=== PATIENT | female | born 1965 | race Two or more races ===

== ENCOUNTER 2016-12-01 23:42 | Emergency (ER) | payer OTHER ==
[~2016-12-01] VITALS: Ht 167.6 cm; Wt 81.6 kg
[~2016-12-01 23:42] MED LIST: ALPR0.25 PO; AML5T PO; ATE50T PO; GLIP2.5T3 PO; SAXA1TAB PO
[2016-12-01 23:52] VITALS: BP 170/90
[2016-12-02 00:35] LABS: Basophils # (auto) 0 uL; Basophils % (auto) 0.5 % (0.0-2.0); Eosinophils # (auto) 0.1 uL; Hematocrit 40.8 % (36.0-46.0); Hemoglobin 13.2 g/dL (12.2-16.2); Lymphocytes # (auto) 2.4 uL; Lymphocytes % (auto) 34.1 % (10.0-50.0); Mean Corpuscular Hemoglobin 29.3 pg (28.0-32.0); Mean Corpuscular Hgb Conc. 32.4 g/dL (32.0-36.0); Mean Corpuscular Volume 90.5 fL (80.0-100.0); Mean Platelet Volume 8.6 fL (7.4-10.4); Monocytes # (auto) 0.4 uL; Monocytes % (auto) 6.1 % (0.0-12.0); Neutrophils # (auto) 4.2 uL; Neutrophils % (auto) 58.3 % (37.0-80.0); Platelet Count (auto) 282 10^3/uL (140-450); Red Cell Distribution Width 12.6 % (11.6-16.0); White Blood Cell 7.2 10^3/uL (4.4-10.8)
[2016-12-02 00:52] LABS: INR 0.93 (0.9-1.15); Partial Thromboplastin Time 27.5 sec (22.64-33.71); Prothrombin Time 10.1 sec (9.37-12.3)
[2016-12-02 00:53] LABS: Albumin 3.4 g/dL (3.4-5.0); Anion Gap 9 (5-15); BUN/Creatinine Ratio 13.4; Blood Urea Nitrogen 11 mg/dL (7-18); Carbon Dioxide 26 mmol/L (21-32); Chloride 106 mmol/L (98-107); GFR African American 94 mL/min; GFR Non-African American 78 mL/min; Glucose 184 mg/dL (74-106); Magnesium 2.2 mg/dL (1.6-2.6); Potassium 3.3 mmol/L (3.5-5.1); Sodium 141 mmol/L (136-145)
[2016-12-02 00:58] LABS: Alkaline Phosphatase 98 U/L (45-117); Aspartate Aminotransferase 13 U/L (15-37); Bilirubin, Total 0.5 mg/dL (0.2-1.0); Total Protein 7.3 g/dL (6.4-8.2)
[2016-12-02 01:02] LABS: B-Type Natriuretic Peptide 27.3 pg/mL (0-100)
== END 2016-12-02 03:08 | disposition left against medical advice (07) ==
LOC: EDBD 23:42 → ER 23:42
DX: R07.9 Chest pain, unspecified (principal); F41.9 Anxiety disorder, unspecified; Z53.21 Procedure and treatment not carried out due to patient leaving prior to being seen by health care provider
CPT/HCPCS: 36415; 71020; 80053; 83735; 83880; 84484; 85025; 85610; 85730; 93005

== ENCOUNTER 2017-08-23 07:18 | Emergency (ER) | payer OTHER ==
[~2017-08-23] VITALS: Ht 30.5 cm; Wt 73.5 kg
[2017-08-23 07:55] LABS: Basophils # (auto) 0 uL; Basophils % (auto) 0.5 % (0.0-2.0); Eosinophils # (auto) 0.1 uL; Eosinophils % (auto) 1.3 % (0.0-7.0); Hematocrit 39.5 % (36.0-46.0); Hemoglobin 13.6 g/dL (12.2-16.2); Lymphocytes # (auto) 2.8 uL; Lymphocytes % (auto) 39.7 % (10.0-50.0); Mean Corpuscular Hgb Conc. 34.4 g/dL (32.0-36.0); Mean Corpuscular Volume 87.2 fL (80.0-100.0); Monocytes # (auto) 0.5 uL; Monocytes % (auto) 6.7 % (0.0-12.0); Neutrophils # (auto) 3.6 uL; Neutrophils % (auto) 51.8 % (37.0-80.0); Nucleated Red Blood Cells % 0.2 %; Platelet Count (auto) 294 10^3/uL (140-450); Red Blood Cells 4.53 10^6/uL (4.0-5.20); Red Cell Distribution Width 13.7 % (11.8-14.3)
[2017-08-23 08:22] LABS: Alanine Aminotransferase 28 U/L (13-56); Albumin 3.8 g/dL (3.4-5.0); Alkaline Phosphatase 125 U/L (45-117); Anion Gap 10 (5-15); Aspartate Aminotransferase 13 U/L (15-37); BUN/Creatinine Ratio 21.5; Bilirubin, Total 0.2 mg/dL (0.2-1.0); Blood Urea Nitrogen 14 mg/dL (7-18); Calcium 8.9 mg/dL (8.5-10.1); Carbon Dioxide 26 mmol/L (21-32); Chloride 97 mmol/L (98-107); GFR African American 122 mL/min; GFR Non-African American 101 mL/min; Glucose 227 mg/dL (74-106); Sodium 133 mmol/L (136-145)
[2017-08-23 08:31] LABS: Potassium 2.6 mmol/L (3.5-5.1)
[2017-08-23] MEDS ORDERED: cloNIDine HCL 0.1 MG TAB PO ONE (09:00)
[2017-08-23] MEDS ORDERED: POTASSIUM CHL 20 Meq TABLET PO ONE (09:15)
[2017-08-23] MEDS ORDERED: KETOROLAC TROMETH 30 MG/ML 1ML VIAL IV ONE (09:30)
[2017-08-23] MEDS ORDERED: ONDANSETRON HCL 4 MG/2 ML VIAL IV ONE (09:30)
[2017-08-23] MEDS ORDERED: ONDANSETRON ODT 4 MG TAB PO ONE ×2 (09:32→09:45)
[2017-08-23 09:52] LABS: Urine Bacteria FEW /hpf (None Seen); Urine Blood Negative /uL (Negative); Urine WBC 12 /hpf (0 - 5)
[2017-08-23 12:17] VITALS: BP 107/64
== END 2017-08-23 12:19 | disposition home or self-care (01) ==
LOC: ER 07:18
DX: I10 Essential (primary) hypertension (principal); E11.65 Type 2 diabetes mellitus with hyperglycemia; K21.9 Gastro-esophageal reflux disease without esophagitis; R51 Headache; E78.5 Hyperlipidemia, unspecified; Z90.49 Acquired absence of other specified parts of digestive tract; Z88.6 Allergy status to analgesic agent
CPT/HCPCS: 36415; 70450; 80053; 81001; 82962; 83735; 84132; 84484; 85025; 93005; 96374; 99285; J1885; Q0162

== ENCOUNTER 2017-08-27 05:38 | Emergency (ER) | payer OTHER ==
[~2017-08-27] VITALS: Ht 157.5 cm; Wt 72.6 kg
[2017-08-27 07:44] LABS: Basophils # (auto) 0 uL; Basophils % (auto) 0.4 % (0.0-2.0); Eosinophils # (auto) 0.1 uL; Eosinophils % (auto) 0.8 % (0.0-7.0); Hematocrit 38.9 % (36.0-46.0); Hemoglobin 13.4 g/dL (12.2-16.2); Lymphocytes # (auto) 1.4 uL; Lymphocytes % (auto) 21.4 % (10.0-50.0); Mean Corpuscular Hemoglobin 30.5 pg (28.0-32.0); Mean Corpuscular Hgb Conc. 34.4 g/dL (32.0-36.0); Mean Corpuscular Volume 88.6 fL (80.0-100.0); Monocytes # (auto) 0.3 uL; Monocytes % (auto) 5.4 % (0.0-12.0); Neutrophils # (auto) 4.6 uL; Nucleated Red Blood Cells % 0.1 %; Platelet Count (auto) 272 10^3/uL (140-450); Red Blood Cells 4.39 10^6/uL (4.0-5.20); Red Cell Distribution Width 13.4 % (11.8-14.3); White Blood Cell 6.4 10^3/uL (4.4-10.8)
[2017-08-27 07:56] LABS: INR 0.88 (0.9-1.15); Partial Thromboplastin Time 26.6 sec (22.64-33.71); Prothrombin Time 9.6 sec (9.37-12.3)
[2017-08-27 07:56] LABS: Urine Bacteria NONE SEEN /hpf (None Seen); Urine Blood Negative /uL (Negative); Urine Specific Gravity 1.019 (1.001-1.035); Urine WBC 9 /hpf (0 - 5)
[2017-08-27 08:12] LABS: Alanine Aminotransferase 27 U/L (13-56); Albumin 3.8 g/dL (3.4-5.0); Alkaline Phosphatase 113 U/L (45-117); Anion Gap 10 (5-15); Aspartate Aminotransferase 14 U/L (15-37); BUN/Creatinine Ratio 18.2; Bilirubin, Total 0.3 mg/dL (0.2-1.0); Blood Urea Nitrogen 12 mg/dL (7-18); Calcium 9.3 mg/dL (8.5-10.1); Carbon Dioxide 24 mmol/L (21-32); Chloride 103 mmol/L (98-107); GFR African American 120 mL/min; GFR Non-African American 99 mL/min; Glucose 211 mg/dL (74-106); Magnesium 2.3 mg/dL (1.6-2.6); Potassium 3.5 mmol/L (3.5-5.1); Sodium 137 mmol/L (136-145); Total Protein 7.9 g/dL (6.4-8.2)
[2017-08-27] MEDS ORDERED: cefTRIAXone W LIDOCAINE 1 GM IM IM ONE (09:45)
[2017-08-27] MEDS ORDERED: cefTRIAXone SOD 1,000 MG VL IM ONE (10:00)
[2017-08-27 10:07] VITALS: BP 149/87
== END 2017-08-27 10:08 | disposition home or self-care (01) ==
LOC: EDBD 05:38 → ER 05:46
DX: N39.0 Urinary tract infection, site not specified (principal); R07.9 Chest pain, unspecified; E11.9 Type 2 diabetes mellitus without complications; K21.9 Gastro-esophageal reflux disease without esophagitis; E78.5 Hyperlipidemia, unspecified; I10 Essential (primary) hypertension; R06.02 Shortness of breath; Z90.49 Acquired absence of other specified parts of digestive tract; Z88.9 Allergy status to unspecified drugs, medicaments and biological substances
CPT/HCPCS: 36415; 71045; 80053; 81001; 83735; 83880; 84484; 85025; 85610; 85730; 93005; 96372; 99285; J0696

== ENCOUNTER 2022-09-25 23:02 | Inpatient (IN) | payer BC, OTHER ==
[~2022-09-25] VITALS: Ht 165.1 cm; Wt 73.5 kg
[2022-09-25] MEDS ORDERED: ACCU-CHEK COMFORT CURVE STRIP VI ONE (23:30)
[2022-09-26 00:09] LABS: Basophils # (auto) 0 10 ^3/uL (0-0.2); Basophils % (auto) 0.3 % (0.0-2.0); Eosinophils # (auto) 0.1 10 ^3/uL (0-0.8); Eosinophils % (auto) 0.3 % (0.0-7.0); Hematocrit 38.1 % (36.0-46.0); Hemoglobin 13.1 g/dL (12.2-16.2); Lymphocytes # (auto) 1.4 10 ^3/uL (0.4-5.4); Lymphocytes % (auto) 8.4 % (10.0-50.0); Mean Corpuscular Hgb Conc. 34.4 g/dL (32.0-36.0); Mean Corpuscular Volume 87.2 fL (80.0-100.0); Monocytes % (auto) 5.8 % (0.0-12.0); Neutrophils # (auto) 14.6 10 ^3/uL (1.6-8.6); Neutrophils % (auto) 85.2 % (37.0-80.0); Red Blood Cells 4.37 10^6/uL (4.0-5.20); Red Cell Distribution Width 13.2 % (11.8-14.3); White Blood Cell 17.2 10^3/uL (4.4-10.8)
[2022-09-26 00:24] LABS: Albumin 3.9 g/dL (3.4-5.0); BUN/Creatinine Ratio 27.3 (10.0-20.0); Calcium 9.1 mg/dL (8.5-10.1); Magnesium 1.6 mg/dL (1.6-2.6); Potassium 3.2 mmol/L (3.5-5.1)
[2022-09-26 00:26] LABS: INR 0.93 (0.9-1.15); Partial Thromboplastin Time 28.9 sec (24.6-33.4)
[2022-09-26 00:27] LABS: Bilirubin, Total 0.5 mg/dL (0.2-1.0)
[2022-09-26] MEDS ORDERED: LACTATED RINGER'S 2,050 ML IV ONE (01:45)
[2022-09-26] MEDS ORDERED: ONDANSETRON HCL 4 MG/2 ML VIAL IV ONE (01:45)
[2022-09-26] MEDS ORDERED: PIPERACILLIN-TAZOB 3.375GM 100 ML IV ONE (01:45)
[2022-09-26] MEDS ORDERED: VANCOMYCIN 1GM/250ML 250 ML IV ONE (01:45)
[2022-09-26] MEDS ORDERED: MORPHINE SULFATE 4 MG/ML SYR/VIAL IV ONE (01:45)
[2022-09-26 03:18] LABS: Lactic Acid w/Reflex 2.7 mmol/L (0.4-2.0)
[2022-09-26] MEDS ORDERED: ASPirin 81 mg TAB PO ONE (03:45)
[2022-09-26] MEDS ORDERED: ENOXAPARIN SOD 80 MG/0.8ML SYRINGE SC ONE (03:45)
[2022-09-26 04:01] LABS: Urine Bacteria NONE SEEN /hpf (None Seen); Urine Blood Negative /uL (Negative); Urine Specific Gravity 1.006 (1.001-1.035); Urine WBC 13 /hpf (0 - 5)
[2022-09-26] MEDS: SODIUM CHLORIDE 0.9% 1,000 ML IV SCH ×2 (07:45→17:45)
[2022-09-26] MEDS ORDERED: DOCUSATE SOD 100 MG CAP PO PRN (07:45)
[2022-09-26] MEDS ORDERED: VANCOMYCIN PER PHARMACY 0 MG IV SCH (07:45)
[2022-09-26] MEDS ORDERED: DEXTROSE (50%) 50ML SYRG IV PRN (07:45)
[2022-09-26] MEDS ORDERED: ONDANSETRON HCL 4 MG/2 ML VIAL IV PRN (07:45)
[2022-09-26] MEDS ORDERED: NITROGLYCERIN 0.4 MG SL TAB SL PRN (07:45)
[2022-09-26] MEDS ORDERED: POTASSIUM CHL 20 Meq TABLET PO ONE (07:45)
[2022-09-26] MEDS ORDERED: MORPHINE SULFATE INJ 2 MG/ml SYRG IV PRN (07:45)
[2022-09-26] MEDS: ASPirin 81 mg TAB PO SCH (10:21)
[2022-09-26] MEDS: METOPROLOL SUCCINATE XL 50 MG TAB PO SCH (10:22)
[2022-09-26] MEDS: ATORVASTATIN 20 MG TAB PO SCH (10:22)
[2022-09-26] MEDS: ENOXAPARIN SOD 40 MG/0.4 ML SYRINGE SC SCH (10:23)
[2022-09-26] MEDS: ACCU-CHEK COMFORT CURVE STRIP VI SCH ×3 (11:30→22:17)
[2022-09-26] MEDS: InsuLIN REG 1unit/0.01ml Soln (100units/ml) SC SCH ×3 (12:21→22:48)
[2022-09-26] MEDS: GABAPENTIN 300 MG CAP PO SCH ×2 (13:50→22:47)
[2022-09-26] MEDS: PIPERACILLIN-TAZOB 3.375GM 100 ML IV SCH ×2 (13:51→22:47)
[2022-09-26] MEDS: VANCOMYCIN 1GM/250ML 250 ML IV SCH (18:28)
[2022-09-26] MEDS ORDERED: LORazepam 2MG/ML-1ML VIAL IV PRN (21:30)
[2022-09-27 06:24] LABS: Basophils # (auto) 0 10 ^3/uL (0-0.2); Basophils % (auto) 0.5 % (0.0-2.0); Eosinophils # (auto) 0.1 10 ^3/uL (0-0.8); Eosinophils % (auto) 0.7 % (0.0-7.0); Hematocrit 33.7 % (36.0-46.0); Hemoglobin 11.8 g/dL (12.2-16.2); Lymphocytes # (auto) 2.2 10 ^3/uL (0.4-5.4); Lymphocytes % (auto) 20.2 % (10.0-50.0); Mean Corpuscular Hemoglobin 30.5 pg (28.0-32.0); Mean Corpuscular Hgb Conc. 35.1 g/dL (32.0-36.0); Mean Corpuscular Volume 86.7 fL (80.0-100.0); Monocytes # (auto) 0.7 10 ^3/uL (0-1.3); Monocytes % (auto) 6.8 % (0.0-12.0); Neutrophils # (auto) 7.8 10 ^3/uL (1.6-8.6); Neutrophils % (auto) 71.8 % (37.0-80.0); Nucleated Red Blood Cells % 0.1 %; Red Blood Cells 3.88 10^6/uL (4.0-5.20); Red Cell Distribution Width 12.8 % (11.8-14.3); White Blood Cell 10.8 10^3/uL (4.4-10.8)
[2022-09-27] MEDS: GABAPENTIN 300 MG CAP PO SCH ×3 (06:29→22:48)
[2022-09-27] MEDS: PIPERACILLIN-TAZOB 3.375GM 100 ML IV SCH ×3 (06:29→22:48)
[2022-09-27 06:48] LABS: Calcium 8.5 mg/dL (8.5-10.1); Potassium 3.2 mmol/L (3.5-5.1)
[2022-09-27 06:50] LABS: BUN/Creatinine Ratio 12.1 (10.0-20.0)
[2022-09-27] MEDS: ACCU-CHEK COMFORT CURVE STRIP VI SCH ×4 (07:03→22:49)
[2022-09-27] MEDS: InsuLIN REG 1unit/0.01ml Soln (100units/ml) SC SCH ×4 (07:11→23:21)
[2022-09-27] MEDS: SODIUM CHLORIDE 0.9% 1,000 ML IV SCH ×4 (08:22→23:45)
[2022-09-27] MEDS: ASPirin 81 mg TAB PO SCH (10:10)
[2022-09-27] MEDS: ATORVASTATIN 20 MG TAB PO SCH (10:10)
[2022-09-27] MEDS: METOPROLOL SUCCINATE XL 50 MG TAB PO SCH (10:12)
[2022-09-27] MEDS: ENOXAPARIN SOD 40 MG/0.4 ML SYRINGE SC SCH (10:28)
[2022-09-27] MEDS: VANCOMYCIN 1GM/250ML 250 ML IV SCH (12:08)
[2022-09-27] MEDS ORDERED: ASPI-325 PO (14:41)
[2022-09-27] MEDS ORDERED: ATOR20TA50 PO (14:41)
[2022-09-27] MEDS ORDERED: CEPH250C PO ×2 (14:41)
[2022-09-27] MEDS: VANCOMYCIN HCL 500MG/5ML ORAL SOL PO SCH ×3 (16:15→22:49)
[2022-09-27] MEDS: CHOLESTYRAMINE 4 GM POWDER PO SCH ×2 (17:10→22:48)
[2022-09-27] MEDS ORDERED: GABA-339 PO (18:16)
[2022-09-27] MEDS ORDERED: LISI40TA16 PO (18:16)
[2022-09-27] MEDS ORDERED: HYDR12.59 PO (18:16)
[2022-09-27] MEDS: HYDROcodone-ACET 5/325MG TAB PO PRN (21:05)
[2022-09-28 05:00] VITALS: BP 122/74
[2022-09-28] MEDS: PIPERACILLIN-TAZOB 3.375GM 100 ML IV SCH ×3 (05:34→22:20)
[2022-09-28] MEDS: GABAPENTIN 300 MG CAP PO SCH ×3 (05:34→22:20)
[2022-09-28] MEDS: VANCOMYCIN HCL 500MG/5ML ORAL SOL PO SCH ×4 (05:36→22:22)
[2022-09-28] MEDS: ACCU-CHEK COMFORT CURVE STRIP VI SCH ×4 (06:53→22:10)
[2022-09-28] MEDS: InsuLIN REG 1unit/0.01ml Soln (100units/ml) SC SCH ×4 (06:57→22:17)
[2022-09-28 07:23] LABS: Potassium 3.2 mmol/L (3.5-5.1)
[2022-09-28 07:28] LABS: BUN/Creatinine Ratio 10.4 (10.0-20.0); Calcium 8.7 mg/dL (8.5-10.1)
[2022-09-28 07:29] LABS: Basophils # (auto) 0 10 ^3/uL (0-0.2); Basophils % (auto) 0.1 % (0.0-2.0); Eosinophils # (auto) 0.1 10 ^3/uL (0-0.8); Hematocrit 35.7 % (36.0-46.0); Hemoglobin 12.3 g/dL (12.2-16.2); Lymphocytes # (auto) 2.7 10 ^3/uL (0.4-5.4); Lymphocytes % (auto) 25.2 % (10.0-50.0); Mean Corpuscular Hgb Conc. 34.5 g/dL (32.0-36.0); Mean Corpuscular Volume 86.9 fL (80.0-100.0); Monocytes # (auto) 0.7 10 ^3/uL (0-1.3); Monocytes % (auto) 6.4 % (0.0-12.0); Neutrophils # (auto) 7.1 10 ^3/uL (1.6-8.6); Neutrophils % (auto) 67.3 % (37.0-80.0); Nucleated Red Blood Cells % 0.1 %; Red Cell Distribution Width 13.2 % (11.8-14.3); White Blood Cell 10.5 10^3/uL (4.4-10.8)
[2022-09-28 09:00] VITALS: BP 129/76
[2022-09-28] MEDS: SODIUM CHLORIDE 0.9% 1,000 ML IV SCH ×2 (09:51→22:25)
[2022-09-28] MEDS: ASPirin 81 mg TAB PO SCH (09:51)
[2022-09-28] MEDS: ATORVASTATIN 20 MG TAB PO SCH (09:51)
[2022-09-28] MEDS: METOPROLOL SUCCINATE XL 50 MG TAB PO SCH (09:51)
[2022-09-28] MEDS: ENOXAPARIN SOD 40 MG/0.4 ML SYRINGE SC SCH (09:53)
[2022-09-28] MEDS ORDERED: OMEP20TA PO (10:01)
[2022-09-28] MEDS: HYDROcodone-ACET 5/325MG TAB PO PRN ×3 (10:08→22:21)
[2022-09-28] MEDS: CHOLESTYRAMINE 4 GM POWDER PO SCH ×2 (11:27→22:27)
[2022-09-28 13:18] VITALS: BP 135/71
[2022-09-28 16:52] VITALS: BP 117/63
[2022-09-28] MEDS: OMEPRAZOLE-SOD BICARB 20 MG POWDER PO SCH (18:45)
[2022-09-28 22:00] VITALS: BP 129/73
[2022-09-29] MEDS: HYDROcodone-ACET 5/325MG TAB PO PRN (03:24)
[2022-09-29 05:13] VITALS: BP 144/69
[2022-09-29] MEDS: GABAPENTIN 300 MG CAP PO SCH ×3 (05:39→22:09)
[2022-09-29] MEDS: VANCOMYCIN HCL 500MG/5ML ORAL SOL PO SCH ×4 (05:40→22:10)
[2022-09-29] MEDS: SODIUM CHLORIDE 0.9% 1,000 ML IV SCH ×2 (05:45→15:50)
[2022-09-29] MEDS: PIPERACILLIN-TAZOB 3.375GM 100 ML IV SCH (05:53)
[2022-09-29] MEDS: ACCU-CHEK COMFORT CURVE STRIP VI SCH ×4 (06:20→21:58)
[2022-09-29] MEDS: InsuLIN REG 1unit/0.01ml Soln (100units/ml) SC SCH ×4 (06:24→22:03)
[2022-09-29 06:31] LABS: BUN/Creatinine Ratio 16.4 (10.0-20.0); Calcium 8.2 mg/dL (8.5-10.1)
[2022-09-29 06:42] LABS: Basophils # (auto) 0 10 ^3/uL (0-0.2); Basophils % (auto) 0.3 % (0.0-2.0); Eosinophils # (auto) 0.1 10 ^3/uL (0-0.8); Eosinophils % (auto) 1.1 % (0.0-7.0); Hematocrit 31.9 % (36.0-46.0); Hemoglobin 11.1 g/dL (12.2-16.2); Lymphocytes # (auto) 1.9 10 ^3/uL (0.4-5.4); Lymphocytes % (auto) 20.8 % (10.0-50.0); Mean Corpuscular Hemoglobin 30.2 pg (28.0-32.0); Mean Corpuscular Hgb Conc. 34.7 g/dL (32.0-36.0); Mean Corpuscular Volume 87.2 fL (80.0-100.0); Monocytes # (auto) 0.7 10 ^3/uL (0-1.3); Monocytes % (auto) 7.9 % (0.0-12.0); Neutrophils # (auto) 6.5 10 ^3/uL (1.6-8.6); Neutrophils % (auto) 69.9 % (37.0-80.0); Nucleated Red Blood Cells % 0.1 %; Red Blood Cells 3.66 10^6/uL (4.0-5.20); Red Cell Distribution Width 12.7 % (11.8-14.3); White Blood Cell 9.3 10^3/uL (4.4-10.8)
[2022-09-29 09:00] VITALS: BP 139/85
[2022-09-29] MEDS: ACETAMINOPHEN 325 MG TAB PO PRN ×2 (09:12→19:17)
[2022-09-29] MEDS: ASPirin 81 mg TAB PO SCH (09:13)
[2022-09-29] MEDS: ATORVASTATIN 20 MG TAB PO SCH (09:13)
[2022-09-29] MEDS: ENOXAPARIN SOD 40 MG/0.4 ML SYRINGE SC SCH (09:13)
[2022-09-29] MEDS: METOPROLOL SUCCINATE XL 50 MG TAB PO SCH (09:13)
[2022-09-29] MEDS: OMEPRAZOLE-SOD BICARB 20 MG POWDER PO SCH (09:19)
[2022-09-29] MEDS: CHOLESTYRAMINE 4 GM POWDER PO SCH ×2 (11:12→22:09)
[2022-09-29 13:00] VITALS: BP 126/78
[2022-09-29 17:15] VITALS: BP 138/83
[2022-09-29 22:00] VITALS: BP 168/103
[2022-09-29 22:10] VITALS: BP 166/86
[2022-09-30] MEDS: SODIUM CHLORIDE 0.9% 1,000 ML IV SCH ×3 (01:45→22:22)
[2022-09-30] MEDS ORDERED: METO-289 PO (02:04)
[2022-09-30] MEDS ORDERED: CHLO25TA2 PO (02:04)
[2022-09-30] MEDS: hydrALAZINE HCL 10 MG TAB PO PRN ×3 (02:24→13:47)
[2022-09-30 05:00] VITALS: BP 165/83
[2022-09-30] MEDS: VANCOMYCIN HCL 500MG/5ML ORAL SOL PO SCH ×4 (05:05→22:01)
[2022-09-30] MEDS: GABAPENTIN 300 MG CAP PO SCH ×3 (05:05→21:59)
[2022-09-30 06:03] LABS: Basophils # (auto) 0 10 ^3/uL (0-0.2); Basophils % (auto) 0.5 % (0.0-2.0); Eosinophils # (auto) 0.1 10 ^3/uL (0-0.8); Hemoglobin 11.7 g/dL (12.2-16.2); Lymphocytes % (auto) 34.5 % (10.0-50.0); Mean Corpuscular Hemoglobin 29.9 pg (28.0-32.0); Mean Corpuscular Hgb Conc. 34.5 g/dL (32.0-36.0); Mean Corpuscular Volume 86.8 fL (80.0-100.0); Monocytes # (auto) 0.4 10 ^3/uL (0-1.3); Monocytes % (auto) 7.7 % (0.0-12.0); Neutrophils # (auto) 3.2 10 ^3/uL (1.6-8.6); Neutrophils % (auto) 56.3 % (37.0-80.0); Nucleated Red Blood Cells % 0.1 %; Red Blood Cells 3.92 10^6/uL (4.0-5.20); Red Cell Distribution Width 12.8 % (11.8-14.3); White Blood Cell 5.7 10^3/uL (4.4-10.8)
[2022-09-30 06:11] LABS: Potassium 3.2 mmol/L (3.5-5.1)
[2022-09-30] MEDS: ACCU-CHEK COMFORT CURVE STRIP VI SCH ×4 (06:17→22:01)
[2022-09-30] MEDS: InsuLIN REG 1unit/0.01ml Soln (100units/ml) SC SCH ×4 (06:19→22:12)
[2022-09-30 06:20] LABS: BUN/Creatinine Ratio 6.3 (10.0-20.0); Calcium 8.5 mg/dL (8.5-10.1)
[2022-09-30] MEDS: ACETAMINOPHEN 325 MG TAB PO PRN ×2 (08:43→17:57)
[2022-09-30 09:00] VITALS: BP 173/105
[2022-09-30] MEDS: ASPirin 81 mg TAB PO SCH (09:41)
[2022-09-30] MEDS: ATORVASTATIN 20 MG TAB PO SCH (09:41)
[2022-09-30] MEDS: ENOXAPARIN SOD 40 MG/0.4 ML SYRINGE SC SCH (09:42)
[2022-09-30] MEDS: METOPROLOL SUCCINATE XL 50 MG TAB PO SCH (09:42)
[2022-09-30] MEDS: OMEPRAZOLE-SOD BICARB 20 MG POWDER PO SCH (09:43)
[2022-09-30] MEDS: CHOLESTYRAMINE 4 GM POWDER PO SCH ×2 (10:47→21:59)
[2022-09-30 13:00] VITALS: BP 165/87
[2022-09-30 17:00] VITALS: BP 169/91
[2022-09-30] MEDS ORDERED: hydrALAZINE HCL 20 MG/ML VL IV PRN (17:15)
[2022-09-30] MEDS ORDERED: METOPROLOL TARTRATE 1MG/1ML-5ML VIAL IV ONE (19:15)
[2022-09-30 22:00] VITALS: BP 156/80
[2022-09-30] MEDS: METOPROLOL TARTRATE 50 MG TAB PO SCH (22:00)
[2022-09-30] MEDS: HYDROcodone-ACET 5/325MG TAB PO PRN (22:21)
[2022-10-01] VITALS (7 sets, daily range): BP systolic 120–152; BP diastolic 63–80
[2022-10-01] MEDS: HYDROcodone-ACET 5/325MG TAB PO PRN ×3 (03:43→15:31)
[2022-10-01] MEDS: GABAPENTIN 300 MG CAP PO SCH ×2 (06:02→14:35)
[2022-10-01] MEDS: VANCOMYCIN HCL 500MG/5ML ORAL SOL PO SCH ×2 (06:02→12:25)
[2022-10-01] MEDS: ACCU-CHEK COMFORT CURVE STRIP VI SCH ×2 (06:05→11:30)
[2022-10-01] MEDS: InsuLIN REG 1unit/0.01ml Soln (100units/ml) SC SCH ×2 (06:05→11:30)
[2022-10-01 07:00] LABS: Basophils # (auto) 0 10 ^3/uL (0-0.2); Basophils % (auto) 0.4 % (0.0-2.0); Eosinophils # (auto) 0.1 10 ^3/uL (0-0.8); Eosinophils % (auto) 1.3 % (0.0-7.0); Hematocrit 33.1 % (36.0-46.0); Hemoglobin 11.4 g/dL (12.2-16.2); Lymphocytes # (auto) 2.4 10 ^3/uL (0.4-5.4); Lymphocytes % (auto) 34.5 % (10.0-50.0); Mean Corpuscular Hemoglobin 29.7 pg (28.0-32.0); Mean Corpuscular Hgb Conc. 34.5 g/dL (32.0-36.0); Mean Corpuscular Volume 86.1 fL (80.0-100.0); Monocytes # (auto) 0.5 10 ^3/uL (0-1.3); Neutrophils % (auto) 56.8 % (37.0-80.0); Nucleated Red Blood Cells % 0.1 %; Red Blood Cells 3.85 10^6/uL (4.0-5.20); Red Cell Distribution Width 12.9 % (11.8-14.3)
[2022-10-01 07:16] LABS: Calcium 7.9 mg/dL (8.5-10.1)
[2022-10-01 07:18] LABS: BUN/Creatinine Ratio 6.9 (10.0-20.0)
[2022-10-01 07:28] LABS: Potassium 2.9 mmol/L (3.5-5.1)
[2022-10-01] MEDS ORDERED: POTASSIUM CHLORIDE 20 MEQ, LIDOCAINE 1% (LOCAL ANESTH.) 2 ML in SODIUM CHL 0.9% 100 ML IV ONE (08:45)
[2022-10-01] MEDS ORDERED: POTASSIUM CHL 20 Meq TABLET PO ONE (08:45)
[2022-10-01] MEDS: ATORVASTATIN 20 MG TAB PO SCH (09:52)
[2022-10-01] MEDS: ASPirin 81 mg TAB PO SCH (09:52)
[2022-10-01] MEDS: METOPROLOL TARTRATE 50 MG TAB PO SCH (09:53)
[2022-10-01] MEDS: ENOXAPARIN SOD 40 MG/0.4 ML SYRINGE SC SCH (09:54)
[2022-10-01] MEDS: OMEPRAZOLE-SOD BICARB 20 MG POWDER PO SCH (09:54)
[2022-10-01] MEDS: SODIUM CHLORIDE 0.9% 1,000 ML IV SCH (09:55)
[2022-10-01] MEDS: CHOLESTYRAMINE 4 GM POWDER PO SCH (12:05)
[2022-10-01] MEDS ORDERED: VANC250PO PO (15:32)
== END 2022-10-01 16:08 | disposition home or self-care (01) | DRG 372 ==
LOC: EDBD 23:02 → ER 23:02 → TELE 09-26 07:56 → OBSVTOIN 09-26 17:04 → TELE-WESTW 09-27 18:29
PROVIDERS: ADMIT Nurse Practitioner Family; ATTEND Internal Medicine
DX: A04.72 Enterocolitis due to Clostridium difficile, not specified as recurrent (principal); E87.20 Acidosis, unspecified; N39.0 Urinary tract infection, site not specified; E78.5 Hyperlipidemia, unspecified; E87.6 Hypokalemia; F41.9 Anxiety disorder, unspecified; K21.9 Gastro-esophageal reflux disease without esophagitis; R79.89 Other specified abnormal findings of blood chemistry; E11.65 Type 2 diabetes mellitus with hyperglycemia; R00.0 Tachycardia, unspecified; R77.8 Other specified abnormalities of plasma proteins; H81.10 Benign paroxysmal vertigo, unspecified ear; I10 Essential (primary) hypertension; Z78.9 Other specified health status; Z80.7 Family history of other malignant neoplasms of lymphoid, hematopoietic and related tissues; Z88.6 Allergy status to analgesic agent; Z80.8 Family history of malignant neoplasm of other organs or systems; Z82.49 Family history of ischemic heart disease and other diseases of the circulatory system; Z83.3 Family history of diabetes mellitus; Z87.442 Personal history of urinary calculi
CPT/HCPCS: 36415; 70450; 70486; 70551; 71045; 71250; 72125; 74176; 80048; 80053; 81001; 82962; 83605; 83735; 83880; 84484; 85025; 85610; 85730; 87040; 87086; 87493; 93005; 93306; 95819; 97110; 97116; 97163; 97530; G0378; J1815; J2001; J2405; J2543